=== PATIENT | female | born 1955 | race Caucasian/White ===

== ENCOUNTER 2020-11-05 01:07 | Emergency (ER) | payer MEDICARE ==
[~2020-11-05] VITALS: Ht 157.5 cm; Wt 40.8 kg
[2020-11-05] MEDS ORDERED: SYNTHROID50 MC1 PO (01:40)
[2020-11-05 02:30] LABS: BASOPHILS ABSOLUTE AUTO 0.13 K/mm3 (0.00-0.23); BASOPHILS PERCENT AUTO 1 % (0-2); EOSINOPHILS ABSOLUTE AUTO 0.28 K/mm3 (0.00-0.68); EOSINOPHILS PERCENT AUTO 3 % (0-6); Hematocrit 48.1 % (33.0-51.0); Hemoglobin 15.8 g/dL (11.5-16.0); IMMATURE GRAN ABSOLUTE AUTO 0.05 K/mm3 (0.00-0.10); IMMATURE GRAN PERCENT AUTO 1 % (0-1); LYMPHOCYTES PERCENT AUTO 29 % (21-46); MONOCYTES ABSOLUTE AUTO 0.77 K/mm3 (0.16-1.47); MONOCYTES PERCENT AUTO 8 % (4-13); Mean Corpuscular HGB Conc 32.8 g/dL (31.5-36.5); Mean Corpuscular Volume 95 fL (80-100); Mean Platelet Volume 8.7 fL (9.1-12.4); NEUTROPHILS ABSOLUTE AUTO 5.96 K/mm3 (1.96-9.15); NEUTROPHILS PERCENT AUTO 59 % (41-73); Platelet Count 437 K/mm3 (150-400); RDW Coefficient Variation 13.4 % (11.7-14.2); RDW Standard Deviation 47.7 fL (35.1-46.3); Red Blood Cell Count 5.09 M/mm3 (3.80-5.20); White Blood Cell Count 10.19 K/mm3 (4.00-11.30)
[2020-11-05 02:51] LABS: Alanine Aminotransfer (ALT/SGP 25 U/L (12-78); Albumin, Blood 3.9 g/dL (3.4-5.0); Alk Phos 64 U/L (50-136); Anion Gap 7 mmol/L (6-16); Aspartate Aminotrans (AST/SGOT 29 U/L (12-37); Bilirubin, Total 0.5 mg/dL (0.1-1.0); Blood Urea Nitrogen 8 mg/dL (8-24); Bun/Creatinine Ratio 14.9 (12.0-20.0); CO2, Blood 25 mmol/L (21-32); Calcium, Blood 9.2 mg/dL (8.5-10.1); Chloride, Blood 107 mmol/L (98-108); Creatinine, Blood 0.54 mg/dL (0.40-1.00); Free Thyroxine 0.97 ng/dL (0.70-1.60); Glomerular Filtration Rate >60 (60-); Glucose, Blood 127 mg/dL (70-99); Potassium, Blood 3.5 mmol/L (3.5-5.5); Sodium, Blood 139 mmol/L (136-145); Total Protein, Blood 7.9 g/dL (6.4-8.2); Triiodothyronine, Free 1.91 pg/mL (2.18-3.98); Troponin I <0.015 ng/mL (0.000-0.040)
== END 2020-11-05 03:30 | disposition home or self-care (01) ==
LOC: ER 01:07
PROVIDERS: Emergency Medicine
DX: I10 Essential (primary) hypertension (principal); R07.89 Other chest pain; E03.9 Hypothyroidism, unspecified; Z79.899 Other long term (current) drug therapy
CPT/HCPCS: 71045; 80053; 84439; 84443; 84481; 84484; 85025; 93005; 93010; 99284-25

== ENCOUNTER 2021-01-18 09:41 | Day surgery (SDC) | payer MEDICARE ==
[~2021-01-18] VITALS: Ht 157.5 cm; Wt 95.8 kg
[~2021-01-18 09:41] MED LIST: SYNTHROID50 MC1 PO
[2021-01-18] MEDS ORDERED: LISI5 PO (10:01)
[2021-01-18] MEDS ORDERED: MIRTAZAPINE7.5 M1 PO (10:03)
[2021-01-18] MEDS ORDERED: ERGO50000 (10:03)
[2021-01-18] MEDS ORDERED: PRED5 PO (10:04)
== END 2021-01-18 11:58 | disposition home or self-care (01) ==
LOC: ORSCSDS 09:41
PROVIDERS: Otolaryngology
PROC: 03BT0ZX Excision of Left Temporal Artery, Open Approach, Diagnostic (ICD-10-PCS; principal; 2021-01-18 11:00)
DX: M31.6 Other giant cell arteritis (principal); G44.89 Other headache syndrome; H53.2 Diplopia; J44.9 Chronic obstructive pulmonary disease, unspecified; I10 Essential (primary) hypertension; E03.9 Hypothyroidism, unspecified; Z79.899 Other long term (current) drug therapy; F17.210 Nicotine dependence, cigarettes, uncomplicated
CPT/HCPCS: 88305; 88313; J1100; J2250; J2704; J7120

== ENCOUNTER 2024-11-04 12:43 | Inpatient (IN) | payer MEDICARE ==
[~2024-11-04] VITALS: Ht 157.5 cm; Wt 38.6 kg
[~2024-11-04 12:43] MED LIST changes: +ERGO50000; +LISI5 PO; +MIRTAZAPINE7.5 M1 PO; +PRED5 PO
[2024-11-04] MEDS ORDERED: Albuterol 2.5 MG/3 ML VIAL INH SCH (13:05)
[2024-11-04 13:11] LABS: BASOPHILS ABSOLUTE AUTO 0.04 K/mm3 (0.00-0.23); BASOPHILS PERCENT AUTO 1 % (0-2); EOSINOPHILS ABSOLUTE AUTO 0.03 K/mm3 (0.00-0.68); EOSINOPHILS PERCENT AUTO 1 % (0-6); Hematocrit 38.2 % (33.0-51.0); IMMATURE GRAN ABSOLUTE AUTO 0.03 K/mm3 (0.00-0.10); IMMATURE GRAN PERCENT AUTO 1 % (0-1); LYMPHOCYTES ABSOLUTE AUTO 1.63 K/mm3 (0.84-5.20); LYMPHOCYTES PERCENT AUTO 27 % (21-46); MONOCYTES ABSOLUTE AUTO 0.68 K/mm3 (0.16-1.47); MONOCYTES PERCENT AUTO 11 % (4-13); Mean Corpuscular HGB 31.2 pg (26.0-34.0); Mean Corpuscular Volume 92 fL (80-100); Mean Platelet Volume 8.9 fL (9.1-12.4); NEUTROPHILS ABSOLUTE AUTO 3.55 K/mm3 (1.96-9.15); NEUTROPHILS PERCENT AUTO 60 % (41-73); Platelet Count 209 K/mm3 (150-400); RDW Coefficient Variation 12.4 % (11.7-14.2); RDW Standard Deviation 41.1 fL (35.1-46.3); Red Blood Cell Count 4.17 M/mm3 (3.80-5.20); White Blood Cell Count 5.96 K/mm3 (4.00-11.30)
[2024-11-04 13:50] LABS: Influenza B, PCR NEGATIVE (NEGATIVE); Resp Syncytial Virus, PCR NEGATIVE (NEGATIVE); SARS-Cov-2 (COVID-19) PCR, MMC NEGATIVE (NEGATIVE)
[2024-11-04 13:52] LABS: Influenza A, PCR POSITIVE (NEGATIVE)
[2024-11-04 14:17] LABS: Albumin, Blood 3.1 g/dL (3.4-5.0); Albumin/Globulin Ratio 0.9 (0.8-1.8); Bilirubin, Total 0.5 mg/dL (0.1-1.0); Bun/Creatinine Ratio 17.2 (12.0-20.0); Calcium, Blood 7.9 mg/dL (8.5-10.1); Creatinine, Blood 0.35 mg/dL (0.40-1.00); Globulin, Blood 3.3 g/dL (2.2-4.0); Potassium, Blood 3.5 mmol/L (3.5-5.5); Total Protein, Blood 6.4 g/dL (6.4-8.2)
[2024-11-04] MEDS ORDERED: FLU VACC TS2024-25(6MOS UP)/PF 45 MCG/0.5 ML SYRINGE IM SCH (16:25)
[2024-11-04] MEDS ORDERED: Ondansetron HCl 2 MG / ML 2ML Vial IV PRN (16:25)
[2024-11-04] MEDS ORDERED: Ipratropium/Albuterol SulF 2.5-0.5MG/3 ML Amp INH SCH (16:25)
[2024-11-04 18:05] VITALS: BP 111/64
[2024-11-04 20:08] VITALS: BP 113/65
[2024-11-04] MEDS ORDERED: Famotidine 20 MG Tab PO SCH (21:00)
[2024-11-04] MEDS ORDERED: Mirtazapine 15 MG Tab PO SCH (21:00)
[2024-11-05] MEDS ORDERED: Albuterol 2.5 MG/3 ML VIAL INH PRN (03:05)
[2024-11-05] MEDS ORDERED: Ipratropium/Albuterol SulF 2.5-0.5MG/3 ML Amp INH SCH (03:10)
[2024-11-05 04:05] VITALS: BP 120/64
[2024-11-05] MEDS ORDERED: Levothyroxine Sodium 0.05 MG Tab PO SCH (06:00)
[2024-11-05 08:01] VITALS: BP 116/64
[2024-11-05] MEDS ORDERED: Enoxaparin 40 MG/0.4 ML SYR SC SCH (09:00)
[2024-11-05] MEDS ORDERED: Lisinopril 5 MG Tab PO SCH (09:00)
[2024-11-05] MEDS ORDERED: PredniSONE 20 MG Tab PO SCH (09:00)
[2024-11-05] MEDS ORDERED: Loratadine 10 MG Tab PO SCH (14:00)
[2024-11-05 15:40] VITALS: BP 102/62
[2024-11-05 19:39] VITALS: BP 110/61
[2024-11-05] MEDS ORDERED: Zolpidem Tartrate 5 MG Tab PO SCH (22:40)
[2024-11-06 04:59] VITALS: BP 109/65
[2024-11-06 05:44] LABS: Bun/Creatinine Ratio 28.8 (12.0-20.0); Creatinine, Blood 0.56 mg/dL (0.40-1.00); Potassium, Blood 4.5 mmol/L (3.5-5.5)
[2024-11-06 07:20] VITALS: BP 99/62
[2024-11-06] MEDS ORDERED: Cholecalciferol 1000 Unit Tablet (=25MCG) PO SCH (09:00)
[2024-11-06] MEDS ORDERED: LEVSOD75 PO (09:40)
[2024-11-06] MEDS ORDERED: AMLO5 PO (09:41)
[2024-11-06] MEDS ORDERED: ZOLP10 PO (09:42)
[2024-11-06] MEDS ORDERED: ANORO ELLIPTA1 EACH INH (11:15)
[2024-11-06] MEDS ORDERED: PRED20 PO (11:15)
[2024-11-06] MEDS ORDERED: ALBU90OI INH (11:15)
[2024-11-06 15:18] VITALS: BP 126/72
[2024-11-06 21:25] VITALS: BP 130/78
[2024-11-07 07:34] VITALS: BP 123/74
[2024-11-07 15:11] VITALS: BP 129/79
[2024-11-07 20:38] VITALS: BP 127/75
[2024-11-08 05:02] VITALS: BP 142/84
[2024-11-08 07:42] VITALS: BP 149/83
[2024-11-08 11:55] VITALS: BP 130/87
== END 2024-11-08 13:50 | disposition home health service (06) | DRG 193 ==
LOC: ER 12:43 → MEDS 12:44 → ENPENDDIS 11-06 13:44 → MEDS 11-08 13:50
PROVIDERS: Emergency Medicine; ADMIT Internal Medicine
DX: J10.1 Influenza due to other identified influenza virus with other respiratory manifestations (principal); J96.01 Acute respiratory failure with hypoxia; J44.1 Chronic obstructive pulmonary disease with (acute) exacerbation; E03.9 Hypothyroidism, unspecified; F17.210 Nicotine dependence, cigarettes, uncomplicated; I10 Essential (primary) hypertension; G25.0 Essential tremor; Z88.8 Allergy status to other drugs, medicaments and biological substances; Z79.890 Hormone replacement therapy; Z79.899 Other long term (current) drug therapy
CPT/HCPCS: 0241U; 36415; 71045; 80048; 80053; 85025; 94640; 94644; 94664; 94760; 94761; 97110; 97161; 97530; 99285-25; A9270; G0378; J7512